=== PATIENT | male | born 1980 | race American Indian/Alaskan Native ===

== ENCOUNTER 2024-06-01 11:37 | Emergency (ER) | payer OTHER ==
[2024-06-01 11:48] VITALS: BP 113/69; PULSE 67; RESP 18; TEMP 98.2; BMI 23.7
== END 2024-06-01 12:20 | disposition home or self-care (01) ==
LOC: JERFT 11:37
DX: S61.412A Laceration without foreign body of left hand, initial encounter (principal); W21.09XA Struck by other hit or thrown ball, initial encounter
CPT/HCPCS: 99283-25